=== PATIENT | male | born 1970 | race Caucasian/White ===

== ENCOUNTER 2021-09-02 20:18 | Emergency (ER) | payer OTHER, MEDICAID ==
[~2021-09-02] VITALS: Ht 175.3 cm; Wt 74.8 kg
[2021-09-02 20:25] VITALS: BP_SYST 136
[2021-09-02] MEDS ORDERED: SULF1TAB48 PO (23:58)
[2021-09-02] MEDS ORDERED: IBUP-1969 PO (23:58)
[2021-09-03] MEDS ORDERED: IBUPROFEN 600 MG TABLET PO ONE
[2021-09-03] MEDS ORDERED: DIPH-TET-PERTUS Vaccine 0.5 ML VIAL (ADACEL) I.M. ONE
[2021-09-03 00:15] VITALS: BP_SYST 132
== END 2021-09-03 00:21 | disposition home or self-care (01) ==
LOC: SED 20:18
DX: S92.514A Nondisplaced fracture of proximal phalanx of right lesser toe(s), initial encounter for closed fracture (principal); L03.031 Cellulitis of right toe; Z88.0 Allergy status to penicillin; Z79.899 Other long term (current) drug therapy; W20.8XXA Other cause of strike by thrown, projected or falling object, initial encounter; Y93.89 Activity, other specified; Y92.89 Other specified places as the place of occurrence of the external cause; Y99.8 Other external cause status
CPT/HCPCS: 90715; 99283